=== PATIENT | male | born 1995 ===

== ENCOUNTER 2017-06-02 14:00 | Emergency (ER) | payer SELFPAY ==
[2017-06-02 14:00] VITALS: BMI 25.7
[2017-06-02 14:45] VITALS: BP 122/74; PULSE 67; RESP 20; TEMP 98.2; O2SAT 100
--- NOTE | 2017-06-02 15:04 | C.PDOC ---
History Of Present Illness 21 y/o male presents to the ER complaining of nasal congestion, dry cough, and chest tightness on/off for the past 2 weeks. Patient states that he has a known allergy to dog but his family recently brought a new dog. Patient admits to smoking marijuana daily. Patient denies having fever, chills, sputum production , nausea, vomiting, and diarrhea. Time Seen by Provider: 06/02/17 15:03 Chief Complaint (Nursing): Cough, Cold, Congestion History Per: Patient History/Exam Limitations: no limitations Onset/Duration Of Symptoms: Days Current Symptoms Are (Timing): Still Present Associated Symptoms: Cough (dry cough), Nasal Congestion. denies: Fever, Chills , Nausea, Vomiting, Diarrhea Severity: Moderate Past Medical History Reviewed: Historical Data, Nursing Documentation, Vital Signs Vital Signs: Last Vital Signs Temp 98.2 F 06/02/17 14:42 Pulse 67 06/02/17 14:42 Resp 20 06/02/17 14:42 BP 122/74 06/02/17 14:42 Pulse Ox 100 06/02/17 16:38 - Medical History PMH: No Chronic Diseases Surgical History: No Surg Hx - [facility] Procedures LINEAR REP LID LACER (06/29/14) Family History: States: No Known Family Hx - Social History Hx Tobacco Use: No Hx Alcohol Use: No Hx Substance Use: No - Immunization History Hx Tetanus Toxoid Vaccination: Yes (2 yrs ago) Hx Influenza Vaccination: Yes Hx Pneumococcal Vaccination: Yes Review Of Systems Except As Marked, All Systems Reviewed And Found Negative. Constitutional: Negative for: Fever, Chills ENT: Positive for: Nose Congestion Respiratory: Positive for: Cough (dry cough) Gastrointestinal: Negative for: Nausea, Vomiting, Diarrhea Physical Exam - Physical Exam Appears: Non-toxic, No Acute Distress Skin: Normal Color, Warm Head: Atraumatic, Normacephalic Eye(s): bilateral: Normal Inspection, EOMI Ear(s): Bilateral: Normal Nose: Discharge (clear rhinorrhea, boggy turbinates) Oral Mucosa: Moist Throat: Other (PND) Neck: Normal ROM, Supple Chest: Symmetrical Cardiovascular: Rhythm Regular Respiratory: Normal Breath Sounds, No Rales, No Rhonchi, No Wheezing Back: Normal Inspection, No CVA Tenderness Extremity: Bilateral: Atraumatic, Normal Color And Temperature, Normal ROM Neurological/Psych: Oriented x3, Normal Speech ED Course And Treatment O2 Sat by Pulse Oximetry: 100 (RA) Pulse Ox Interpretation: Normal Medical Decision Making Medical Decision Making: Impression: allergies, cough, smoker Patient wants chest Xray. XRay ordered and viewed showing hyperinflation, no infiltrates or other acute process Patient remained afebrile well in no acute distress. Disposition Counseled Patient/Family Regarding: Diagnosis, Need For Followup, Rx Given - Disposition Referrals: [facility] [Outside] [facility] [Outside] Disposition: HOME/ ROUTINE Disposition Time: 15:04 Condition: STABLE Additional Instructions: Follow up with the clinic in 2-5 days for further evaluation. Take medications as prescribed. Return to the emergency department at any time if symptoms persist or worsen. You may call [facility] for any assistance [phone]. 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 - Scribe Statement The provider has reviewed the documentation as recorded by the Damari Ambrose Provider Attestation All medical record entries made by the Scribe were at my direction and personally dictated by me. I have reviewed the chart and agree that the record accurately reflects my personal performance of the history, physical exam, medical decision making, and the department course for this patient. I have also personally directed, reviewed, and agree with the discharge instructions and disposition.
--- NOTE | 2017-06-02 16:31 | RAD ---
Chest x-ray two views History: Shortness of breath. Smoker. Comparison: None available. Findings: No focal infiltrate or effusion. Heart size within normal limits. Impression: No focal infiltrate or effusion.
== END 2017-06-02 15:39 | disposition home or self-care (01) ==
LOC: C.ER 14:00
DX: J30.9 Allergic rhinitis, unspecified (principal); F12.90 Cannabis use, unspecified, uncomplicated

== ENCOUNTER 2017-11-26 08:05 | Emergency (ER) | payer MEDICAID, OTHER ==
[2017-11-26 08:06] VITALS: BMI 25.7
[2017-11-26] MEDS ORDERED: Albuterol-Ipratrop 3 mg / 0.5 (3 ml) UD IH STA (08:31)
[2017-11-26] MEDS ORDERED: Albuterol 0.083% Inhal Sol (2.5 mg/3 mL) UD INH STA (08:31)
[2017-11-26] MEDS ORDERED: Albuterol 0.083% Inhal Sol (2.5 mg/3 mL) UD ONE ×2 (08:48→08:54)
[2017-11-26] MEDS ORDERED: Albuterol-Ipratrop 3 mg / 0.5 (3 ml) UD ONE (08:48)
--- NOTE | 2017-11-26 08:50 | C.PDOC ---
History Of Present Illness 22 years old male presents to ED for complaints of coughing, difficulty breathing, and nasal congestion that began 4 days ago. Denies fever, medical problems, allergies to medications, smoking, or any other physical complaints. Patient reports taking Nyquil with no relief. Time Seen by Provider: 11/26/17 08:19 Chief Complaint (Nursing): Cough, Cold, Congestion History Per: Patient History/Exam Limitations: no limitations Onset/Duration Of Symptoms: Days (4) Current Symptoms Are (Timing): Still Present Recent travel outside of the [place]: No Past Medical History Reviewed: Historical Data, Nursing Documentation, Vital Signs Vital Signs: Last Vital Signs Temp 98.7 F 11/26/17 08:14 Pulse 88 11/26/17 08:14 Resp 20 11/26/17 08:14 BP 116/76 11/26/17 08:14 Pulse Ox 97 11/26/17 08:14 - Medical History PMH: No Chronic Diseases - [facility] Procedures LINEAR REP LID LACER (06/29/14) Family History: States: Unknown Family Hx - Social History Hx Tobacco Use: No Hx Alcohol Use: No Hx Substance Use: No - Immunization History Hx Tetanus Toxoid Vaccination: Yes (2 yrs ago) Hx Influenza Vaccination: Yes Hx Pneumococcal Vaccination: Yes Review Of Systems Except As Marked, All Systems Reviewed And Found Negative. ENT: Positive for: Nose Congestion Respiratory: Positive for: Cough, SOB with Excertion, Wheezing Physical Exam - Physical Exam Appears: Non-toxic, No Acute Distress Skin: Normal Color, Warm, Dry, No Rash Head: Atraumatic, Normacephalic Eye(s): bilateral: Normal Inspection, PERRL, EOMI Ear(s): Bilateral: Normal Oral Mucosa: Moist Throat: Normal, No Erythema, No Exudate, No Drooling Neck: Supple Chest: Symmetrical, No Tenderness Cardiovascular: Rhythm Regular, No Murmur Respiratory: No Decreased Breath Sounds, No Rales, No Rhonchi, Wheezing (Noisy ) Gastrointestinal/Abdominal: Soft, No Tenderness Extremity: No Deformity Extremity: Bilateral: Atraumatic, Normal Color And Temperature, Normal ROM Neurological/Psych: Oriented x3, Normal Speech Gait: Steady ED Course And Treatment O2 Sat by Pulse Oximetry: 97 (RA) Pulse Ox Interpretation: Normal - Other Rad CXR X-Ray: Viewed By Me, Read By Radiologist Interpretation: Date of service: 11/26/2017. HISTORY: cough/wheezing. COMPARISON: No prior. TECHNIQUE: Chest PA and lateral. FINDINGS: Increased/coarsened interstitial markings; rule out sequela of reactive/inflammatory airway disease or viral illness. No focal consolidation. LUNGS: . PLEURA: No significant pleural effusion identified. No pneumothorax apparent. CARDIOVASCULAR: Normal. OSSEOUS STRUCTURES: No significant abnormalities. VISUALIZED UPPER ABDOMEN: Normal. OTHER FINDINGS: None. IMPRESSION: Increased/coarsened interstitial markings; rule out sequela of reactive/inflammatory airway disease or viral illness. No focal consolidation. Progress Note: Administered Albuterol nebulizer and peak flow. Ordered CXR. On re-evaluation patient feels better and is stable to be d/c home with PMD follow up. Disposition - Disposition Referrals: [facility] [Outside] Disposition: HOME/ ROUTINE Disposition Time: 09:53 Condition: STABLE Additional Instructions: Follow up with PMD within 1-2 days. Return to ED if feel worse. 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 - Scribe Statement The provider has reviewed the documentation as recorded by the Breaibcandida Singh All medical record entries made by the Breaibcandida were at my direction and personally dictated by me. I have reviewed the chart and agree that the record accurately reflects my personal performance of the history, physical exam, medical decision making, and the department course for this patient. I have also personally directed, reviewed, and agree with the discharge instructions and disposition.
--- NOTE | 2017-11-26 09:17 | RAD ---
Date of service: 11/26/2017 HISTORY: cough/wheezing COMPARISON: No prior. TECHNIQUE: Chest PA and lateral FINDINGS: Increased/coarsened interstitial markings; rule out sequela of reactive/inflammatory airway disease or viral illness. No focal consolidation. LUNGS: . PLEURA: No significant pleural effusion identified. No pneumothorax apparent. CARDIOVASCULAR: Normal. OSSEOUS STRUCTURES: No significant abnormalities. VISUALIZED UPPER ABDOMEN: Normal. OTHER FINDINGS: None. IMPRESSION: Increased/coarsened interstitial markings; rule out sequela of reactive/inflammatory airway disease or viral illness. No focal consolidation.
[2017-11-26 10:25] VITALS: BP 115/71; PULSE 86; RESP 18; TEMP 98.4
[2017-11-27 16:36] VITALS: O2SAT 97
== END 2017-11-26 10:25 | disposition home or self-care (01) ==
LOC: C.ER 08:05
DX: J06.9 Acute upper respiratory infection, unspecified (principal); J45.909 Unspecified asthma, uncomplicated

== ENCOUNTER 2018-06-14 16:01 | Emergency (ER) | payer SELFPAY ==
[2018-06-14 16:01] VITALS: BMI 25.7
[2018-06-14 16:36] VITALS: TEMP 98.2
[2018-06-14] MEDS ORDERED: Albuterol-Ipratrop 3 mg / 0.5 (3 ml) UD INH STA ×2 (17:12→18:10)
--- NOTE | 2018-06-14 17:24 | C.PDOC ---
History Of Present Illness 22 y/o male, non-smoker, c/o cough and trouble sleeping for few days. feels like he needs to work hard to take a breath, and then coughs. no fever. no sick contacts. similar episodes several months ago. Time Seen by Provider: 06/14/18 16:37 Chief Complaint (Nursing): Shortness Of Breath History Per: Patient History/Exam Limitations: no limitations Onset/Duration Of Symptoms: Days Current Symptoms Are (Timing): Still Present Severity: Moderate Past Medical History Reviewed: Historical Data, Nursing Documentation, Vital Signs Vital Signs: Last Vital Signs Temp 98.2 F 06/14/18 16:32 Pulse 79 06/14/18 16:32 Resp 18 06/14/18 16:32 BP 130/82 06/14/18 16:32 Pulse Ox 97 06/14/18 16:32 - Medical History PMH: No Chronic Diseases Other Surgeries: Hx of surgeries - [facility] Procedures LINEAR REP LID LACER (06/29/14) Family History: States: No Known Family Hx - Social History Hx Tobacco Use: No Hx Alcohol Use: No Hx Substance Use: No - Immunization History Hx Tetanus Toxoid Vaccination: No (2 yrs ago) Hx Influenza Vaccination: No Hx Pneumococcal Vaccination: No Review Of Systems Constitutional: Negative for: Fever, Chills Cardiovascular: Negative for: Chest Pain Respiratory: Positive for: Cough. Negative for: Shortness of Breath Gastrointestinal: Negative for: Nausea, Vomiting Physical Exam - Physical Exam Appears: Non-toxic, No Acute Distress Skin: Warm, Dry Head: Atraumatic, Normacephalic Eye(s): bilateral: Normal Inspection Oral Mucosa: Moist Throat: No Erythema, No Exudate Neck: Supple Chest: Symmetrical Cardiovascular: Rhythm Regular, No Murmur Respiratory: No Rales, No Rhonchi, Wheezing (mild expiratory wheezing in bibasilar areas) Neurological/Psych: Oriented x3, Normal Speech, Normal Cognition ED Course And Treatment O2 Sat by Pulse Oximetry: 97 (RA) Pulse Ox Interpretation: Normal - Radiology CXR: Interpreted by Me, Viewed By Me CXR Interpretation: Yes: No Acute Disease Medical Decision Making Medical Decision Making: Plan: --CXR --[place]oneb --Prednisone PO 1805 pt with mild wheezing at right base s/p first neb. pf 460. feeling better. cxr neg for acute infiltrate. give another neb and re-=eval. 1850 pt feeling much better, no wheezing on exam. pf 500, d/c home Disposition Counseled Patient/Family Regarding: Studies Performed, Diagnosis, Need For Follo wup, Rx Given - Disposition Referrals: [facility] [Outside] [facility] [Outside] Disposition: HOME/ ROUTINE Disposition Time: 18:59 Condition: IMPROVED Additional Instructions: Take medications as prescribed. Follow up with a primary care doctor. Avoid smoke and other exacerbating substances. Use inhaler 1-2 puffs every 6 hours for wheezing or shortness of breath. Return for any worse symptoms. 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 - Scribe Statement The provider has reviewed the documentation as recorded by the Breaibe Narinder Ambrose Provider Attestation All medical record entries made by the Breaibe were at my direction and personally dictated by me. I have reviewed the chart and agree that the record accurately reflects my personal performance of the history, physical exam, medical decision making, and the department course for this patient. I have also personally directed, reviewed, and agree with the discharge instructions and disposition.
[2018-06-14] MEDS ORDERED: Albuterol-Ipratrop 3 mg / 0.5 (3 ml) UD ONE ×2 (17:28→18:30)
--- NOTE | 2018-06-14 17:52 | RAD ---
Date of service: 06/14/2018 HISTORY: Cough and shortness of breath COMPARISON: 11/26/2017. TECHNIQUE: Chest PA and lateral FINDINGS: LINES AND TUBES: None. LUNG AND PLEURA: The lungs are well inflated and clear. No pleural effusion or pneumothorax. HEART AND MEDIASTINUM: The heart is not enlarged. No aortic atherosclerotic calcifications present. The hilar and mediastinal contours are within normal limits. SKELETAL STRUCTURES: The bony structures are within normal limits for the patient's age. VISUALIZED UPPER ABDOMEN: Normal. OTHER FINDINGS: None. IMPRESSION: No active pulmonary disease.
[2018-06-14 19:09] VITALS: BP 129/80; PULSE 99; RESP 20
[2018-06-15 22:36] VITALS: O2SAT 97
== END 2018-06-14 19:05 | disposition home or self-care (01) ==
LOC: C.ER 16:01
DX: J45.909 Unspecified asthma, uncomplicated (principal)